=== PATIENT | female | born 1955 | race Caucasian/White ===

== ENCOUNTER → 2016-11-12 | Outpatient (CLI) | payer BC ==
--- NOTE | 2016-11-13 09:56 | MM ---
Reason for exam: screening (asymptomatic). Last mammogram was performed 1 year and 7 months ago. History: Patient is postmenopausal. Benign core biopsy of the right breast, March 23, 2007. Benign excisional biopsy of the right breast, 1996. Benign excisional biopsy of the right breast, 1995. Physical Findings: A clinical breast exam by your physician is recommended on an annual basis and results should be correlated with mammographic findings. MG Screening Mammo w CAD Bilateral CC and MLO view(s) were taken. Prior study comparison: April 17, 2015, right breast MG 3d work up w/cad RT. March 31, 2015, bilateral MG screening mammo w CAD. June 10, 2012, bilateral digital screening mammo w/CAD. The breast tissue is heterogeneously dense. This may lower the sensitivity of mammography. Previous mammotome biopsy within the right breast. Focal asymmetry left CC view only. This finding is changed, more defined when compared with previous exams 2009 - 2014. ASSESSMENT: Incomplete: need additional imaging evaluation, BI-RAD 0 RECOMMENDATION: Special view mammogram of the left breast. If lesion persists on supplemental views, image directed ultrasound is recommended. [facility] will attempt to contact patient to return for supplemental views and ultrasound if indicated.
== END | disposition home or self-care (01) ==
LOC: RADMAMWWP 07:47
PROVIDERS: ATTEND Family Medicine
DX: Z12.31 Encounter for screening mammogram for malignant neoplasm of breast (principal)

== ENCOUNTER → 2016-11-20 | Outpatient (CLI) | payer BC ==
--- NOTE | 2016-11-20 08:44 | MM ---
Reason for exam: additional evaluation requested from abnormal screening. Last mammogram was performed less than 1 month ago. History: Patient is postmenopausal. Benign core biopsy of the right breast, March 23, 2007. Benign excisional biopsy of the right breast, 1996. Benign excisional biopsy of the right breast, 1995. Physical Findings: Nurse did not find any significant physical abnormalities on exam. MG Work Up Mamm w CAD LT ML and spot compression CC view(s) were taken of the left breast. Prior study comparison: November 12, 2016, bilateral MG screening mammo w CAD. April 17, 2015, right breast MG 3d work up w/cad RT. There are scattered fibroglandular densities. There is no discrete abnormality including area of concern. No significant new findings when compared with previous films. These results were verbally communicated with the patient and result sheet given to the patient on 11/20/16. ASSESSMENT: Negative, BI-RAD 1 RECOMMENDATION: Return to routine screening mammogram schedule for both breasts.
== END | disposition home or self-care (01) ==
LOC: RADMAMWWP 07:55
PROVIDERS: ATTEND Family Medicine
DX: R92.8 Other abnormal and inconclusive findings on diagnostic imaging of breast (principal)

== ENCOUNTER → 2017-07-14 | Outpatient (CLI) | payer BC ==
--- NOTE | 2017-07-14 15:02 | US ---
EXAMINATION TYPE: US thyroid st tissue head/neck DATE OF EXAM: 07/14/2017 COMPARISON: NONE CLINICAL HISTORY: 61-year-old female with swelling and neck mass R22.0 Swelling/Mass in Neck. Palpabl e area felt on the right by dentist TECHNIQUE: Multiple sonographic images of the thyroid gland are obtained. FINDINGS: GLAND SIZE: Right Lobe: 4.5 x 1.3 x 2.2 cm Overall Parenchyma: heterogenous Left Lobe: 4.4 x 1.1 x 1.7 cm Overall Parenchyma: heterogeneous Isthmus Thickness: 0.3 cm NODULES RIGHT: # of nodules measured on right: 2 1. 1.3 X 1.2 x 0.9 cm hypoechoic solid nodule at the mid pole with well-defined margins. This nodu le is wider than tall and shows intranodular vascularity. 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 0.6 X 0.7 x 0.6 cm hypoechoic solid nodule at the mid pole with well-defined margins; interrupted peripheral calcification. This nodule is wider than tall and shows intranodular vascularity. Prior size: OCEANOLOGY TEACHER LEFT: # of nodules measured on left: 0 ISTHMUS: # of nodules measured in the isthmus: 0 1.0 x 0.4 x 0.6cm normal-appearing lymph node along the lateral right neck adjacent to the IJV. IMPRESSION: 1. 2 solid nodules in the right lobe measuring 1.3 cm and 0.7 cm. Consideration can be given to FNA o f the larger nodule. 2. Palpable site along the right lateral neck corresponds to a normal-appearing lymph node (6 mm shor t axis diameter)
== END | disposition home or self-care (01) ==
LOC: RADUSWWP 13:23
PROVIDERS: ATTEND Family Medicine
DX: R22.0 Localized swelling, mass and lump, head (principal)
CPT/HCPCS: 76536

== ENCOUNTER 2017-07-30 12:12 | Day surgery (SDC) | payer BC ==
[2017-07-30 13:28] VITALS: RESP 16; TEMP 98.1
[2017-07-30 13:53] VITALS: BP 144/83; PULSE 76
--- NOTE | 2017-07-30 17:29 | US ---
EXAMINATION TYPE: US FNA thyroid DATE OF EXAM: 07/30/2017 COMPARISON: NONE HISTORY: Thyroid nodule. Maximal barrier technique was utilized. After informed consent, skin overlying the lesion was locali zed with ultrasound and the overlying skin prepped and draped. Ultrasound was utilized using sterile technique. Lidocaine was used for local anesthesia. Five passes with a 25-gauge needle were made int o the right lower pole nodule and aspirated specimen was submitted to cytology. Following the proced ure hemostasis achieved. No immediate complication. The patient discharged in stable condition. IMPRESSION: STATUS POST ULTRASOUND GUIDED FINE NEEDLE ASPIRATION OF THYROID NODULE, PATHOLOGY IS PEND ING. THIS PROCEDURE WAS PERFORMED BY THE UNDERSIGNED.
== END 2017-07-30 13:50 | disposition home or self-care (01) ==
LOC: RADPROMAIN 12:12
PROVIDERS: ATTEND Family Medicine
DX: E07.89 Other specified disorders of thyroid (principal)
CPT/HCPCS: 10022; 76942; 88173; 88305

== ENCOUNTER → 2018-03-30 | Outpatient (CLI) | payer BC ==
--- NOTE | 2018-03-31 10:26 | MM ---
Reason for exam: screening (asymptomatic). Last mammogram was performed 1 year and 4 months ago. History: Patient is postmenopausal. Benign core biopsy of the right breast, March 23, 2007. Benign excisional biopsy of the right breast, 1996. Benign excisional biopsy of the right breast, 1995. Physical Findings: A clinical breast exam by your physician is recommended on an annual basis and results should be correlated with mammographic findings. MG 3D Screening Mammo W/Cad Bilateral CC and MLO view(s) were taken. Prior study comparison: November 20, 2016, left breast MG work up mamm w CAD LT. November 12, 2016, bilateral MG screening mammo w CAD. The breast tissue is heterogeneously dense. This may lower the sensitivity of mammography. There are benign appearing round calcifications bilaterally. Previous mammotome biopsy in the right breast. There is no discrete abnormality. ASSESSMENT: Benign, BI-RAD 2 RECOMMENDATION: Routine screening mammogram of both breasts in 1 year.
== END ==
LOC: RADMAMWWP 08:06
PROVIDERS: ATTEND Family Medicine
DX: Z12.31 Encounter for screening mammogram for malignant neoplasm of breast (principal)
CPT/HCPCS: 77063; 77067

== ENCOUNTER → 2018-04-10 | Outpatient (CLI) | payer BC | END | disposition home or self-care (01) | LOC: RADMRIMAIN 09:13 | PROVIDERS: ATTEND Orthopaedic Surgery | DX: Z53.9 Procedure and treatment not carried out, unspecified reason (principal) ==

== ENCOUNTER 2018-06-21 00:41 | Emergency (ER) | payer BC ==
[2018-06-21 00:51] VITALS: TEMP 97.8
[2018-06-21] MEDS ORDERED: DIPH,PERTUS(ACELL)TETVAC-LF 0.5 ML VIAL IM ONE (01:20)
--- NOTE | 2018-06-21 02:04 | ED ---
Fall HPI - General Chief Complaint: Fall Stated Complaint: Head injury laceration Time Seen by Provider: 06/21/18 01:01 Source: patient Mode of arrival: ambulatory - History of Present Illness Initial Comments: Pleasant, 62-year-old female who denies past medical history presenting today for chief complaint of fall. Patient states she had left a friend's house, when she slipped on ice falling backwards hitting the back of her head and back. Patient states her head was bleeding. Patient denies loss of consciousness. Patient missed to headache and pain at site of contact with the ground. Patient states her tailbone and neck are sore. Patient denies any pain to range of motion of the extremities. Muscle weakness of the upper or lower extremities, numbness, tingling or loss of sensation of the upper or lower extremities. Patient denies diplopia or vision changes. Patient did admit to nausea, denied vomiting. Patient is unsure of her last tetanus vaccination. Patient states she did have a few cocktails throughout the evening , patient denies heavy drinking. Patient denies use of anticoagulants. Remainder ROS negative, patient denies any recent fever, chills, shortness of breath, chest pain, abdominal pain, vomiting, numbness or tingling, dysuria or hematuria, constipation or diarrhea, or any other complaints. Upon arrival pt BP and HR elevated - Related Data Previous Rx's Medication Instructions Recorded Cyclobenzaprine [Flexeril] 10 mg PO HS 7 Days #7 tab 06/21/18 Allergies Allergy/AdvReac Type Severity Reaction Status Date / Time No Known Allergies Allergy Verified 06/21/18 00:50 Review of Systems ROS Statement: Those systems with pertinent positive or pertinent negative responses have been documented in the HPI. ROS Other: All systems not noted in ROS Statement are negative. Past Medical History Past Medical History: No Reported History History of Any Multi-Drug Resistant Organisms: None Reported Past Surgical History: Breast Surgery, Orthopedic Surgery, Tubal Ligation Additional Past Surgical History / Comment(s): RT BREAT LUMPECTOMY X 2, ARTHROSCOPIC RT SHOULDER,NUMEROUS AASHISH. KNEE SURGERY SINCE AGE 19, Past Anesthesia/Blood Transfusion Reactions: Previous Problems w/ Anesthesia, Motion Sickness, Postoperative Nausea & Vomiting (PONV) Additional Past Anesthesia/Blood Transfusion Reaction / Comment(s): GETS [employer] SICK Past Psychological History: No Psychological Hx Reported Smoking Status: Never smoker Past Alcohol Use History: Occasional Past Drug Use History: None Reported General Exam - General Exam Comments Initial Comments: General: The patient is awake and alert, in no distress, and does not appear acutely ill. Eye: +3 mm pupils are equal, round and reactive to light, extra-ocular movements are intact. No nystagmus. There is normal conjunctiva bilaterally. No signs of icterus. Ears, nose, mouth and throat: There are moist mucous membranes and no oral lesions. Negative Howard or raccoon sign Neck: The neck is supple, there is no tenderness or JVD. Cardiovascular: There is a regular rate and rhythm. No murmur, rub or gallop is appreciated. Respiratory: Lungs are clear to auscultation, respirations are non-labored, breath sounds are equal. No wheezes, stridor, rales, or rhonchi. Gastrointestinal: Soft, non-distended, non-tender abdomen without masses or organomegaly noted. There is no rebound or guarding present. Musculoskeletal: Normal ROM, no tenderness. Strength 5/5. Sensation intact. Pulses equal bilaterally 2+. Neurological: A&O x 3. CN II-XII intact, memory intact to immediately, intermediate and skilled nursing recall. Able to follow simple verbal. Able to name a common object (pen). High quality, labial (pa) and lingual (la) speech. Low quality posterior pharynx/larynx (ga) voice sounds. Able to express general knowledge (days in a week). No hemineglect or inattention noted. Finger agnosia (-) and spatially oriented (identified L index finger touched R shoulder with L index finger). Light touch sensation intact. No visible bulk atrophy, hypertrophy, fasciculations, or myoclonus of the UE or LE b/l. Full PROM in UE and LE b/l. Bilateral muscle strength 5/5 of UE and LE equal b/l. Finger to nose, finger to the examiners finger.. Coordinated and even demonstration of hand flip, finger to thumb, and toe tap b/l. Gait is coordinated and even in stride with tandem, toe and heel walk. Maintains balance with monopedal stance. No midline tenderness to palpation of the cervical spine. Patient does have some mild paravertebral tenderness of the cervical spine. Skin: Skin is warm and dry and no rashes or lesions are noted. Inspection of the scalp was performed twice, hair parted and inspect. Hematoma noted over scalp, occipital aspect. No definite laceration. Abrasion present. Psychiatric: Cooperative, appropriate mood & affect, normal judgment. Limitations: no limitations Course Vital Signs 06/21/18 06/21/18 00:47 02:25 Temperature 97.8 F Pulse Rate 103 H 90 Respiratory 18 16 Rate Blood Pressure 168/95 152/92 O2 Sat by Pulse 95 96 Oximetry Medical Decision Making - Medical Decision Making Well appearing 62yo female with cc of fall. No LOC or use of anticoagulants. Pt did have a few alcoholic beverages. No overt signs of intoxication on exam. No focal neurological deficits on neurological examination. Skin exam revealed scalp hematoma. Paravertebral tenderness of cervical spine. All imaging studies negative for acute process. Tetanus updated. Patient offered pain medication, refused at this time. At this time I feel pt has a cervical and lumbar muscle strain. Will be given prescription for flexeril qhs. Pt instructed to f/u with primary care provider in the next 2-3 days and return for any change, worsening, persistent or concerning symptoms including persistent headache or vomiting. Pt discharged appearing well, denied questions. medications escribed to patient pharmacy of choice. Case discussed with attending provider prior to d/c Disposition Clinical Impression: Scalp hematoma, Abrasion of scalp, Fall, Head injury, Low back strain, Cervical strain Disposition: HOME SELF-CARE Condition: Good Instructions (If sedation given, give patient instructions): Muscle Strain (ED) , Head Injury (ED) Additional Instructions: Please use medication as discussed. Please follow-up with family doctor in the next 2 days. Please return to emergency room if the symptoms increase or worsen or for any other concerns, as discussed. Is patient prescribed a controlled substance at d/c from ED?: No Referrals: Neda Maria III, MD [Primary Care Provider] - 1-2 days Time of Disposition: 02:22
--- NOTE | 2018-06-21 02:10 | CT ---
EXAMINATION TYPE: CT lumbar spine wo con DATE OF EXAM: 06/21/2018 1:56 AM COMPARISON: HISTORY: pt. slipped on ice and hit the back of her head and lumbar. evaluate for trauma CT DLP: 1053 mGycm Automated exposure control for dose reduction was used. Unenhanced CT of the lumbar spine was performed. Bone and soft tissue window settings are submitted as well as coronal and sagittal reconstructions. The lumbar vertebra have fairly normal spacing and alignment. Posterior elements are intact. There is mild facet arthropathy in the lower lumbar spine. The sacroiliac joints are intact. I see no bony de structive process. There is no evidence of lumbar spinal stenosis. The sacrum appears intact. IMPRESSION: Mild facet arthropathy in the lower lumbar spine. No fracture seen. Normal disc spaces.
--- NOTE | 2018-06-21 02:13 | CT ---
EXAMINATION TYPE: CT brain key jones DATE OF EXAM: 06/21/2018 COMPARISON: None HISTORY: pt. slipped on ice and hit the back of her head. evaluate for trauma CT DLP: 1309.6 mGycm Automated exposure control for dose reduction was used. TECHNIQUE: CT scan of the head and cervical spine are performed without contrast. FINDINGS: Ventricles of normal size. There is no mass effect nor midline shift. There is no sign of intracranial hemorrhage. The calvarium is intact. There is cervical mild kyphotic curvature. There is degenerative disc space narrowing at C5-6 and C6- 7 with spurring of the endplates. The facet joints are intact. There is mild facet arthropathy on the left side at C3-4. The skull base is intact. IMPRESSION: Negative CT scan of the brain. Spondylotic changes in the lower cervical spine with mild kyphotic curvature. No fracture seen.
[2018-06-21 02:26] VITALS: BP 152/92; PULSE 90; RESP 16
== END 2018-06-21 02:31 | disposition home or self-care (01) ==
LOC: EC 00:41
DX: S16.1XXA Strain of muscle, fascia and tendon at neck level, initial encounter (principal); S39.012A Strain of muscle, fascia and tendon of lower back, initial encounter; S00.03XA Contusion of scalp, initial encounter; Z23 Encounter for immunization; W00.0XXA Fall on same level due to ice and snow, initial encounter; Y92.099 Unspecified place in other non-institutional residence as the place of occurrence of the external cause
CPT/HCPCS: 70450; 72125; 72131; 90471; 90715; 99283

== ENCOUNTER → 2018-08-11 | Outpatient (CLI) | payer BC ==
[2018-08-11 10:49] LABS: Basophils % (A) 1 %; Eosinophils # (A) 0.1 k/uL (0-0.7); Eosinophils % (A) 2 %; HCT 44.4 % (34.0-46.0); HGB 14.1 gm/dL (11.4-16.0); Lymphocytes # (A) 1.1 k/uL (1.0-4.8); Lymphocytes % (A) 25 %; MCH 28.8 pg (25.0-35.0); MCHC 31.8 g/dL (31.0-37.0); MCV 90.5 fL (80.0-100.0); Mean Platelet Volume 7.4; Monocytes # (A) 0.2 k/uL (0-1.0); Monocytes % (A) 6 %; Neutrophils # (A) 2.8 k/uL (1.3-7.7); Neutrophils % (A) 65 %; Platelet Count 267 k/uL (150-450); RBC 4.91 m/uL (3.80-5.40); RDW 12.3 % (11.5-15.5); WBC 4.3 k/uL (3.8-10.6)
[2018-08-11 11:04] LABS: Potassium 5.1 mmol/L (3.5-5.1)
== END | disposition home or self-care (01) ==
LOC: LABWHC1 10:00
PROVIDERS: ATTEND Orthopaedic Surgery
DX: Z01.818 Encounter for other preprocedural examination (principal); M75.41 Impingement syndrome of right shoulder
CPT/HCPCS: 36415; 80051; 85025; 93005

== ENCOUNTER 2018-09-03 06:03 | Day surgery (SDC) | payer BC ==
[2018-09-01 10:23] VITALS: BMI 27.6
--- NOTE | 2018-09-02 21:06 | HP ---
HISTORY AND PHYSICAL DATE OF SURGERY: 09/03/2018 Lore Hudson is a 62-year-old patient seen with progressive right shoulder pain. We discussed options. She elected to proceed with arthroscopy. Consent was obtained. PAST MEDICAL HISTORY: Noncontributory. PAST SURGICAL HISTORY: Left knee arthroscopy. DAILY MEDICATIONS: None. ALLERGIES: NONE. SOCIAL HISTORY: She denies tobacco use. PHYSICAL EVALUATION OF RIGHT SHOULDER: Flexion 140 degrees, abduction 130 degrees, external rotation 60 degrees. Tenderness along the anterolateral acromion and rotator cuff insertion site. Impingement sign is positive at 90 degrees. Distal neurovascular exam is intact. RADIOGRAPHS: Radiographs of the right shoulder revealed a type 2 anterior acromion, evidence for acromioclavicular joint osteoarthritis and cystic changes of the greater tuberosity. Right shoulder MRI revealed rotator cuff tear and osteoarthritic changes. IMPRESSION: 1. Right shoulder impingement with rotator cuff tear. 2. Right shoulder acromioclavicular joint osteoarthritis. 3. Right shoulder glenohumeral joint osteoarthritis. PLAN: Right shoulder arthroscopy with subacromial decompression, probable arthroscopic rotator cuff repair and debridement. MMODL / IJN: [id number] /
[~2018-09-03 06:03] MED LIST: DEXAMETHASONE SOD PHOSPHATE 10 MG/ML 1 ML VIAL IV ONE; LACTATED RINGERS 1,000 ML IV SCH; LIDOCAINE 1% 20 ML VIAL (10MG/ML) FOR IV START INTRADERMA PRN; MIDAZOLAM (PF) 2 MG/2 ML VIAL IV PRN; ONDANSETRON 4 MG/2 ML VIAL IVP ONE; ceFAZolin IN SWFI 2 GM/20 ML SYRINGE IVP ONE; fentaNYL (PF) 50 MCG/ML 2 ML AMP IV PRN
[2018-09-03] MEDS ORDERED: SCOPOLAMINE 1.5MG/72HR PATCH TRANSDERM ONE (06:46)
[2018-09-03] MEDS ORDERED: fentaNYL (PF) 50 MCG/ML 2 ML AMP IV ONE (06:48)
[2018-09-03] MEDS ORDERED: PROPOFOL 10 MG/ML 20 ML VIAL IV ONE (07:12)
[2018-09-03] MEDS ORDERED: MIDAZOLAM 2 MG/2 ML VIAL ONE (07:12)
[2018-09-03] MEDS ORDERED: ROCURONIUM BROMIDE 10 MG/ML 10 ML VIAL IV ONE (07:12)
[2018-09-03] MEDS ORDERED: LIDOCAINE 1% INJ 10MG/ML (20 ML MDV) ONE (07:12)
[2018-09-03] MEDS ORDERED: SUCCINYLCHOLINE CHLORIDE VIAL 200 MG/10 ML VIAL IV ONE (07:12)
[2018-09-03] MEDS ORDERED: ROPIVACAINE 5 MG/ML 30 ML VIAL ONE (07:12)
--- NOTE | 2018-09-03 08:05 | P.ONQ ---
Anesthesiology Proc Note - PNB - Peripheral Nerve Block Performed Right Interscalene Single Time Out Performed: Yes Procedure Start Time: 06:48 Indication: Acute Post-Operative Pain Sedation Type: Sedate with meaningful contact maintained Preparation: Sterile Prep Position: Supine Catheter: None Needle Types: Other (see comment) (Alda) Needle Size: 50mm (2") Needle Gauge: 21 Technique: Ultrasound Injectate: 0.5% Ropivacaine (see comment for volume) (20 cc) Blood Aspirated: No Pain Paresthesia on Injection Noted: No Resistance on Injection: Normal Events: Uneventful and Well Tolerated
--- NOTE | 2018-09-03 08:57 | P.OP ---
Date of Procedure: 09/03/18 Preoperative Diagnosis: Right shoulder impingement Postoperative Diagnosis: 1. Right shoulder rotator cuff tear 2. Right shoulder impingement 3. Right shoulder acromioclavicular joint osteoarthritis 4. Right shoulder partial long head biceps tendon tear 5. Right shoulder grade 2 chondromalacia glenoid Procedure(s) Performed: 1. Right shoulder arthroscopic rotator cuff repair 2. Right shoulder arthroscopic subacromial decompression 3. Right shoulder arthroscopic Irving procedure 4. Right shoulder arthroscopic biceps tenotomy 5. Right shoulder arthroscopic chondroplasty glenoid fossa Implants: 15.5 Arthrex swivel lock anchor Anesthesia: GETA, regional (Interscalene block) Surgeon: Chai Molina [employer] Consultant #1: Jace Waggoner Estimated Blood Loss (ml): 10 Pathology: none sent Condition: stable Disposition: PACU Indications for Procedure: 62-year-old patient seen with progressive right shoulder pain. After having treatment options discussed, she elected to proceed with arthroscopy. Operative Findings: See description of procedure Description of Procedure: Patient underwent an interscalene block by department of anesthesia for postoperative pain management. The patient was then taken to the operative suite. The patient underwent a general anesthetic by the department of anesthesia. The patient was placed into a lateral position and secured. There was appropriate padding of the bony prominence. Right shoulder was then prepped and draped in normal sterile orthopedic fashion. We placed the extremity in 10 pounds of longitudinal traction. A posterior incision was now made for a posterior working portal site. The trocar and cannula were inserted into the glenohumeral joint. Arthroscopy was initiated. Spinal needle was now inserted anteriorly, to ascertain the anterior working portal site. An incision was now made in that area, a trocar was inserted followed by a probe. There was grade 2 chondromalacia changes of the glenoid with some osteochondral tears present more anteriorly. There was hyperemia and partial tearing long head biceps tendon. I performed an arthroscopic biceps tenotomy. I performed a chondroplasty of the glenoid getting down to stable osteochondral tissue. The residual osteochondral surface appeared stable. The labrum was stable. Instruments were now removed from the glenohumeral joint. Utilizing the posterior working portal site, the trocar and cannula were inserted into the subacromial space. Arthroscopy initiated. I made an incision 2 fingerbreadths lateral to the acromion. I introduced my trocar followed by my ArthroCare ablator. I now began ablating thick subacromial bursal tissue, which exposed the undersurface of the anterior acromion. There was diminished subacromial space. There was a very prominent anterior acromion. A motorized bur was introduced and a subacromial decompression was performed. I also excised some osteophytes off the inferior aspect of the distal clavicle. The AC joint was visualized and noted to be fairly arthritic. The motorized bur was introduced in the anterior portal site and a Irving procedure was performed without difficulty, decompressing the AC joint nicely. I turned my attention to the rotator cuff. There was a 1.5 cm rotator cuff tear. I debrided the margins getting down to stable tendon tissue. I abraded the footprint with a motorized bur. I passed 2 everted mattress sutures through good bites of rotator cuff tendon. I now repaired the tendon back down to the footprint with the assistance of Naif RAM utilizing one 5.5 Arthrex swivel lock anchor. All residual suture limbs were now clipped. We had good compression of the tendon along the entire footprint. Instruments now removed from the portal sites. All portal sites were approximated with nylon suture. Sterile dressings were applied followed by a shoulder sling. Jace RAM assisted in this complex case. The patient was awakened, transferred to a bed, and taken to recovery in stable condition.
[2018-09-03 08:59] VITALS: TEMP 97.1
[2018-09-03] MEDS ORDERED: ONDANSETRON 4 MG/2 ML VIAL IVP ONE (09:16)
[2018-09-03] MEDS ORDERED: LACTATED RINGERS 1,000 ML IV ONE (09:16)
[2018-09-03 09:18] VITALS: RESP 16
[2018-09-03 10:07] VITALS: BP 151/89; PULSE 82
== END 2018-09-03 10:25 | disposition home or self-care (01) ==
LOC: OR 06:03
PROVIDERS: ATTEND Orthopaedic Surgery
DX: M75.101 Unspecified rotator cuff tear or rupture of right shoulder, not specified as traumatic (principal); M19.011 Primary osteoarthritis, right shoulder; M25.811 Other specified joint disorders, right shoulder; S46.111A Strain of muscle, fascia and tendon of long head of biceps, right arm, initial encounter; M94.211 Chondromalacia, right shoulder; K21.9 Gastro-esophageal reflux disease without esophagitis
CPT/HCPCS: 64415; 29827; 29826; 29824; 29823; C1713; J2250 ×2; J0330; J1100; J2405; J2001; J3010; J2795; J2704

== ENCOUNTER → 2019-10-22 | Outpatient (CLI) | payer BC | END | disposition home or self-care (01) | LOC: LABWHC1 09:47 | PROVIDERS: ATTEND Family Medicine | DX: Z53.9 Procedure and treatment not carried out, unspecified reason (principal) ==

== ENCOUNTER → 2019-10-26 | Outpatient (CLI) | payer BC | END | disposition home or self-care (01) | LOC: LABWHC1 07:53 | PROVIDERS: ATTEND Family Medicine | DX: M79.18 Myalgia, other site (principal); R50.9 Fever, unspecified ==

== ENCOUNTER → 2020-02-24 | Outpatient (CLI) | payer BC ==
--- NOTE | 2020-02-25 10:59 | MM ---
Reason for exam: screening (asymptomatic). Last mammogram was performed 1 year and 11 months ago. History: Patient is postmenopausal. Benign core biopsy of the right breast, March 23, 2007. Benign excisional biopsy of the right breast, 1996. Benign excisional biopsy of the right breast, 1995. Physical Findings: A clinical breast exam by your physician is recommended on an annual basis and results should be correlated with mammographic findings. MG 3D Screening Mammo W/Cad Bilateral CC and MLO view(s) were taken. Prior study comparison: March 30, 2018, bilateral MG 3d screening mammo w/cad. November 20, 2016, left breast MG work up mamm w CAD LT. The breast tissue is heterogeneously dense. This may lower the sensitivity of mammography. There is no discrete abnormality. No significant changes when compared with prior studies. ASSESSMENT: Benign, BI-RAD 2 RECOMMENDATION: Routine screening mammogram of both breasts in 1 year.
== END | disposition home or self-care (01) ==
LOC: RADMAMWWP 09:49
PROVIDERS: ATTEND Family Medicine
DX: Z12.31 Encounter for screening mammogram for malignant neoplasm of breast (principal)
CPT/HCPCS: 77063; 77067

== ENCOUNTER → 2021-03-05 | Outpatient (CLI) | payer BC ==
--- NOTE | 2021-03-06 12:13 | MM ---
Reason for exam: screening (asymptomatic). Last mammogram was performed 1 year ago. History: Patient is postmenopausal. Benign core biopsy of the right breast, March 23, 2007. Benign excisional biopsy of the right breast, 1996. Benign excisional biopsy of the right breast, 1995. Physical Findings: A clinical breast exam by your physician is recommended on an annual basis and results should be correlated with mammographic findings. MG 3D Screening Mammo W/Cad Bilateral CC and MLO view(s) were taken. Prior study comparison: February 24, 2020, bilateral MG 3d screening mammo w/cad. March 30, 2018, bilateral MG 3d screening mammo w/cad. November 20, 2016, left breast MG work up mamm w CAD LT. The breast tissue is heterogeneously dense. This may lower the sensitivity of mammography. Previous mammotome biopsy in the right breast. There is no discrete abnormality. ASSESSMENT: Benign, BI-RAD 2 RECOMMENDATION: Routine screening mammogram of both breasts in 1 year.
== END | disposition home or self-care (01) ==
LOC: RADMAMWWP 08:31
PROVIDERS: ATTEND Family Medicine
DX: Z12.31 Encounter for screening mammogram for malignant neoplasm of breast (principal); Z78.0 Asymptomatic menopausal state
CPT/HCPCS: 77063; 77067

== ENCOUNTER 2022-02-14 02:13 | Emergency (ER) | payer BC ==
[2022-02-14 02:24] VITALS: BP 156/95; PULSE 91; RESP 22; TEMP 98.1
[2022-02-14 02:56] LABS: Calcium Oxalate Crystals,Urine Many /hpf; RBC,Urine >182 /hpf (0-5); Squamous Epithelial Cell,Urine 12 /hpf (0-4); WBC,Urine >182 /hpf (0-5)
[2022-02-14 02:58] LABS: Appearance,Urine Turbid (Clear); Color,Urine Dark Red
[2022-02-14] MEDS ORDERED: LEVOFLOXACIN 750 MG TAB PO STA (03:32)
--- NOTE | 2022-02-14 03:44 | ED ---
Female Urogenital HPI - General Chief complaint: Urogenital Stated complaint: urine retention, body aches Time Seen by Provider: 02/14/22 03:05 Source: patient Mode of arrival: ambulatory Limitations: no limitations - History of Present Illness Initial comments: This patient is a 66-year-old woman who presents evaluation for a suspected urinary tract infection. The patient notes that she is feeling frequent urge to urinate. She states that there has been some discomfort with urination and she states that the urine is darker than usual. No fever or chills. She is having some myalgias she attributes to recent covid shot. No back or abdominal pain MD Complaint: dysuria -: days(s) Severity: mild Consistency: constant Improves with: none Worsens with: urination - Related Data Previous Rx's Medication Instructions Recorded HYDROcodone/APAP 7.5-325MG [[place] 1 each PO Q6HR PRN #28 tab 09/03/18 7.5] Ciprofloxacin HCl [Cipro] 500 mg PO Q12HR #14 tablet 02/14/22 Allergies Allergy/AdvReac Type Severity Reaction Status Date / Time No Known Allergies Allergy Verified 02/14/22 02:24 Review of Systems ROS Statement: Those systems with pertinent positive or pertinent negative responses have been documented in the HPI. ROS Other: All systems not noted in ROS Statement are negative. Constitutional: Denies: fever, chills, weakness Gastrointestinal: Denies: abdominal pain, vomiting Genitourinary: Reports: dysuria, frequency Musculoskeletal: Reports: myalgia. Denies: back pain Skin: Denies: rash Past Medical History Past Medical History: No Reported History History of Any Multi-Drug Resistant Organisms: None Reported Past Surgical History: Breast Surgery, Orthopedic Surgery, Tubal Ligation Additional Past Surgical History / Comment(s): RT BREAT LUMPECTOMY X 2,ARTHROSCOPIC RT SHOULDER,NUMEROUS AASHISH. KNEE SURGERY SINCE AGE 19, Past Anesthesia/Blood Transfusion Reactions: Previous Problems w/ Anesthesia, Motion Sickness, Postoperative Nausea & Vomiting (PONV) Additional Past Anesthesia/Blood Transfusion Reaction / Comment(s): GETS CAR & BOAT SICK Past Psychological History: No Psychological Hx Reported Smoking Status: Never smoker Past Alcohol Use History: Occasional Past Drug Use History: None Reported General Exam Limitations: no limitations General appearance: alert, in no apparent distress Eye exam: Present: normal appearance. Absent: scleral icterus, conjunctival injection Respiratory exam: Present: normal lung sounds bilaterally. Absent: respiratory distress, wheezes, rales, rhonchi, stridor Cardiovascular Exam: Present: regular rate, normal rhythm, normal heart sounds. Absent: systolic murmur, diastolic murmur, rubs, gallop GI/Abdominal exam: Present: soft. Absent: distended, tenderness, guarding, rebound Back exam: Absent: CVA tenderness (R), CVA tenderness (L) Skin exam: Present: warm, dry, intact, normal color. Absent: rash Course Vital Signs 02/14/22 02:16 Temperature 98.1 F Pulse Rate 91 Respiratory 22 Rate Blood Pressure 156/95 O2 Sat by Pulse 99 Oximetry Medical Decision Making - Lab Data Lab Results 02/14/22 Range/Units 02:27 Urine Color Dark Red Urine Appearance Turbid H (Clear) Urine RBC >182 H (0-5) /hpf Urine WBC >182 H (0-5) /hpf Urine WBC Clumps Many H (None) /hpf Ur Squamous Epith Cells 12 H (0-4) /hpf Calcium Oxalate Crystal Many H (None) /hpf Disposition Clinical Impression: Urinary tract infection Disposition: HOME SELF-CARE Condition: Good Instructions (If sedation given, give patient instructions): Urinary Tract Infection in Women (ED) Prescriptions: Ciprofloxacin HCl [Cipro] 500 mg PO Q12HR #14 tablet Is patient prescribed a controlled substance at d/c from ED?: No Referrals: Francia Marie MD [Primary Care Provider] - 1-2 days
== END 2022-02-14 03:52 | disposition home or self-care (01) ==
LOC: EC 02:13
DX: N39.0 Urinary tract infection, site not specified (principal)
CPT/HCPCS: 81001; 87077; 87086; 87186; 99283

== ENCOUNTER → 2022-03-27 | Outpatient (CLI) | payer BC ==
--- NOTE | 2022-03-27 09:35 | BD ---
EXAMINATION TYPE: Axial Bone Density DATE OF EXAM: 03/27/2022 COMPARISON: NONE CLINICAL HISTORY: 66 years year old Female. ICD-10 CODE: Z13.820 OSTEOPOROSIS Height: 64.2 IN Weight: 146 LBS FRAX RISK QUESTIONS: History of Fracture in Adulthood: LT FOOT FX AGE 56 RISK FACTORS HISTORY OF: Family History of Osteoporosis: YES MOTHER/SISTER Active: YES Diet low in dairy products/other sources of calcium: YES Postmenopausal woman: AGE 50 MEDICATIONS: Additional Medications: ASTHMA MEDS, EXAM MEASUREMENTS: Bone mineral densitometry was performed using the [employer]. Bone mineral density as measured about the Lumbar spine is: ----- L1-L4(G/cm2): 0.871 T Score Values are as follows: ----- L1: -2.9 ----- L2: -2.7 ----- L3: -2.6 ----- L4: -2.4 ----- L1-L4: -2.6 Bone mineral density BASELINE Bone mineral density about the R hip (g/cm2): 0.635 Bone mineral density about the L hip (g/cm2): 0.709 T Score values are as follows: -----R Neck: -2.9 -----L Neck: -2.4 -----R Total: -2.8 -----L Total: -2.7 Bone mineral density BASELINE FRAX%s: The graph provided illustrates a 25.4 chance for a major osteoporotic fx and a 7.2 chance for the hips probability for fx in 10 years time. IMPRESSION: Osteoporosis (T Score less than -2.5). There is increased fracture risk and therapy is usually indicated based on age. Re-Screen 1-2 years. NOTE: T-SCORE=SD OF THE YOUNG ADULT MEAN.
--- NOTE | 2022-03-28 19:58 | MM ---
Reason for Exam: Screening (asymptomatic). Last mammogram was performed 1 year(s) and 1 month(s) ago. Patient History: Menarche at age 14. First Full-Term at age 22. Postmenopausal. 03/23/2007, Benign Core Biopsy on the right side. 1996, Benign Excisional Biopsy on the right side. 1995, Benign Excisional Biopsy on the right side. Risk Values: Bina 5 year model risk: 2.2%. NCI Lifetime model risk: 8.6%. Prior Study Comparison: 03/30/2018 Bilateral Screening Mammogram, [facility]. 02/24/2020 Bilateral Screening Mammogram, [facility]. 03/05/2021 Bilateral Screening Mammogram, [facility]. Tissue Density: There are scattered fibroglandular densities. Findings: Analyzed By CAD. Unchanged central upper focal asymmetry with adjacent microclip prior biopsy. Other areas of asymmetric density in both breasts are unchanged. There is no suspicious group of microcalcifications or new suspicious mass in either breast. Overall Assessment: Benign, BI-RAD 2 Management: Screening Mammogram of both breasts in 1 year. 1. Patient should continue monthly self breast exams. 2. A clinical breast exam by your physician is recommended on an annual basis. 3. This exam should not preclude additional follow-up of suspicious palpable abnormalities. Electronically signed and approved by: Franco Manuel M.D. Radiologist
== END | disposition home or self-care (01) ==
LOC: RADMAMWWP 06:59
PROVIDERS: ATTEND Family Medicine
DX: Z12.31 Encounter for screening mammogram for malignant neoplasm of breast (principal); Z13.820 Encounter for screening for osteoporosis; Z78.0 Asymptomatic menopausal state
CPT/HCPCS: 77063; 77067; 77080

== ENCOUNTER → 2023-03-28 | Outpatient (CLI) | payer MEDICARE ==
--- NOTE | 2023-03-31 08:11 | MM ---
Reason for Exam: Screening (asymptomatic). Last screening mammogram was performed 12 month(s) ago. Patient History: Menarche at age 14. First Full-Term at age 22. Postmenopausal. 03/23/2007, Benign Core Biopsy on the right side. 1996, Benign Excisional Biopsy on the right side. 1995, Benign Excisional Biopsy on the right side. Risk Values: Bina 5 year model risk: 2.2%. NCI Lifetime model risk: 8.3%. Prior Study Comparison: 02/24/2020 Bilateral Screening Mammogram, [facility]. 03/05/2021 Bilateral Screening Mammogram, [facility]. 03/27/2022 Bilateral MG 3D screening mammo w/cad, [facility]. Tissue Density: The breast tissue is heterogeneously dense. This may lower the sensitivity of mammography. Findings: Analyzed By CAD. Pattern appears symmetrical and stable. Prior biopsy marker is on the right. There are benign-appearing calcifications within the right breast. No significant interval changes are evident. No suspicious groups of microcalcifications, spiculated or lobular masses, architectural distortion or other secondary signs of malignancy are mammographically apparent. Overall Assessment: Benign, BI-RAD 2 Management: Screening Mammogram of both breasts in 1 year. A negative mammogram report should not preclude additional follow up of suspicious palpable abnormalities. Patient should continue monthly self breast exam. A clinical breast exam by your physician is recommended on an annual basis and results should be correlated with mammographic findings. Electronically signed and approved by: Edwar Calderon D.O. Radiologis
== END | disposition home or self-care (01) ==
LOC: RADMAMWWP 07:11
PROVIDERS: ATTEND Family Medicine
DX: Z12.31 Encounter for screening mammogram for malignant neoplasm of breast (principal); Z78.0 Asymptomatic menopausal state
CPT/HCPCS: 77063; 77067

== ENCOUNTER → 2024-01-05 | Outpatient (CLI) | payer MEDICARE | END | disposition home or self-care (01) | LOC: LABPRL 13:30 | PROVIDERS: ATTEND Family Medicine | DX: Z13.220 Encounter for screening for lipoid disorders (principal); Z13.29 Encounter for screening for other suspected endocrine disorder; M13.0 Polyarthritis, unspecified; M81.0 Age-related osteoporosis without current pathological fracture | CPT/HCPCS: 80053; 80061; 82306; 84443; 85025 ==

== ENCOUNTER → 2024-03-12 | Outpatient (CLI) | payer MEDICARE ==
[2024-03-12 19:01] LABS: Alternaria alternata IgE <0.10 kU/L; Aspergillus fumagatus IgE <0.10 kU/L; Birch IgE <0.10 kU/L; Cat Epith & Dander IgE <0.10 kU/L; Cladosporian herbarum IgE <0.10 kU/L; Clam IgE <0.10 kU/L; Cockroach IgE <0.10 kU/L; Codfish IgE <0.10 kU/L; Dermato. farinae IgE 2.15 kU/L; Dog Dander IgE <0.10 kU/L; Egg White IgE <0.10 kU/L; Elm IgE <0.10 kU/L; Maple (Box Elder) IgE <0.10 kU/L; Oak IgE <0.10 kU/L; Peanut IgE <0.10 kU/L; Ragweed,Common IgE <0.10 kU/L; Red Top (Bentgrass) IgE <0.10 kU/L; Scallop IgE <0.10 kU/L; Shrimp IgE <0.10 kU/L; Soybean IgE <0.10 kU/L; Walnut IgE (Food) <0.10 kU/L
== END | disposition home or self-care (01) ==
LOC: LABWHC1 09:01
PROVIDERS: ATTEND Internal Medicine Critical Care Medicine
DX: J45.909 Unspecified asthma, uncomplicated (principal)
CPT/HCPCS: 36415; 82785; 85008; 86003

== ENCOUNTER → 2024-03-29 | Outpatient (CLI) | payer MEDICARE ==
--- NOTE | 2024-03-29 08:00 | MM ---
Reason for Exam: Screening (asymptomatic). Last screening mammogram was performed 12 month(s) ago. Patient History: Menarche at age 14. First Full-Term at age 22. Postmenopausal. 03/23/2007, Benign Core Biopsy on the right side. 1996, Benign Excisional Biopsy on the right side. 1995, Benign Excisional Biopsy on the right side. Risk Values: Bina 5 year model risk: 2.3%. NCI Lifetime model risk: 8.0%. Prior Study Comparison: 03/05/2021 Bilateral Screening Mammogram, [facility]. 03/27/2022 Bilateral MG 3D screening mammo w/cad, [facility]. 03/28/2023 Bilateral MG 3D screening mammo w/cad, [facility]. Tissue Density: The breasts are heterogeneously dense, which may obscure small masses. Findings: Analyzed By CAD. There is no suspicious group of microcalcifications or new suspicious mass in either breast. Surgical clips within the right breast. Benign appearing calcifications. Overall Assessment: Benign, BI-RAD 2 Management: Screening Mammogram of both breasts in 1 year. . Patient should continue monthly self-breast exams. A clinical breast exam by your physician is recommended on an annual basis. This exam should not preclude additional follow-up of suspicious palpable abnormalities. Note on Bina scores and lifetime risk: 1. A Bina score greater than 3% is considered moderate risk. If this is the case, consider specialist referral to assess eligibility for a risk reducing agent. 2. If overall lifetime risk for the development of breast cancer is 20% or higher, the patient may qualify for future screening with alternating mammogram and breast MRI. [facility], , 03/29/2024 7:57 AM. Electronically signed and approved by: Donn Duffy M.D. Radiologis
--- NOTE | 2024-03-31 21:41 | BD ---
EXAMINATION TYPE: Axial Bone Density DATE OF EXAM: 03/29/2024 CLINICAL HISTORY: 68 years old Female. ICD-10 CODE: M81.0 OSTEOPOROSIS , Z78.0 Height: 64.5 in Weight: 144 lbs FRAX RISK QUESTIONS: History of Fracture in Adulthood: lt foot age 58 MEDICATIONS: Osteoporosis Medications: not now Which medication: Fosamax How Lon months EXAM MEASUREMENTS: Bone mineral densitometry was performed using the [employer]. Bone mineral density as measured about the Lumbar spine is: ----- L1-L4(G/cm2): 0.827 T Score Values are as follows: ----- L1: -3.1 ----- L2: -2.8 ----- L3: -3.1 ----- L4: -3.0 ----- L1-L4: -2.9 Z Score Values are as follows: ----- L1: -1.5 ----- L2: -1.2 ----- L3: -1.5 ----- L4: -1.4 ----- L1-L4: -1.3 Bone mineral density has: Decreased -5.1% since study of: 03/27/2022 Bone mineral density about the R hip (g/cm2): 0.672 Bone mineral density about the L hip (g/cm2): 0.614 T Score values are as follows: -----R Neck: -2.7 -----L Neck: -2.9 -----R Total: -2.7 -----L Total: -3.1 Z Score values are as follows: -----R Neck: -1.2 -----L Neck: -1.4 -----R Total: -1.4 -----L Total: -1.9 Bone mineral density has: Decreased -3.2% since study of: 03/27/2022 FRAX%s: The graph provided illustrates a 26.1% chance for a major osteoporotic fx and a 7.7% chance f or the hips probability for fx in 10 years time. IMPRESSION: Osteoporosis (T Score less than -2.5). There is increased fracture risk and therapy is usually indicated based on age. Re-Screen 1-2 years. NOTE: T-SCORE=SD OF THE YOUNG ADULT MEAN. [facility], , 03/31/2024 9:38 PM
== END | disposition home or self-care (01) ==
LOC: RADMAMWWP 06:57
PROVIDERS: ATTEND Family Medicine
DX: Z12.31 Encounter for screening mammogram for malignant neoplasm of breast (principal); M81.0 Age-related osteoporosis without current pathological fracture; Z78.0 Asymptomatic menopausal state; R92.333 Mammographic heterogeneous density, bilateral breasts; Z98.82 Breast implant status
CPT/HCPCS: 77063; 77067; 77080

== ENCOUNTER 2024-04-30 12:20 | Day surgery (SDC) | payer MEDICARE ==
[2024-04-28 10:07] VITALS: BMI 23.6
[2024-04-30] MEDS: IV FLUID CONTINUATION 1,000 ML IV ONE (13:57)
[2024-04-30 14:14] VITALS: RESP 16; TEMP 98.2
[2024-04-30] MEDS: LACTATED RINGERS 1,000 ML IV SCH (14:25)
[2024-04-30] MEDS ORDERED: PROPOFOL 10 MG/ML 20 ML VIAL IV ONE (15:00)
--- NOTE | 2024-04-30 15:19 | P.PCN ---
Date of Procedure: 04/30/24 Procedure(s) Performed: BRIEF HISTORY: Patient is a 68-year-old pleasant white female scheduled for an elective colonoscopy as a part of screening for colon cancer. PROCEDURE PERFORMED: Colonoscopy. PREOPERATIVE DIAGNOSIS: Screening for colon cancer. IV sedation per Anesthesia. PROCEDURE: After informed consent was obtained, the patient, was brought into the endoscopy unit. IV sedation was administered by Anesthesia under continuous monitoring. Digital rectal examination was normal. Initially the Olympus CF-160 flexible video colonoscope was then inserted in the rectum, gradually advanced into the cecum without any difficulty. Careful examination was performed as the scope was gradually being withdrawn. Ileocecal valve and the appendiceal orifice were visualized and appeared normal. Prep was excellent. Mucosa of the cecum, ascending colon, transverse colon, descending colon, sigmoid colon, and rectum appeared normal. Retroflexion was performed in the rectum and grade 2 internal hemorrhoids were seen. The patient tolerated the procedure well. IMPRESSION: Normal-appearing colon from rectum to cecum with no evidence of colorectal neoplasia Grade 2 internal hemorrhoids. RECOMMENDATIONS: Findings of this examination were discussed with the patient as well as her family. Advised to have repeat screening colonoscopy in 10 years..
[2024-04-30 15:53] VITALS: BP 164/91; PULSE 67
== END 2024-04-30 16:11 | disposition home or self-care (01) ==
LOC: ORWHC2ENDO 12:20
PROVIDERS: ATTEND Internal Medicine Gastroenterology
DX: Z12.11 Encounter for screening for malignant neoplasm of colon (principal); K64.1 Second degree hemorrhoids; F12.90 Cannabis use, unspecified, uncomplicated; Z98.890 Other specified postprocedural states
CPT/HCPCS: J2704; G0121